=== PATIENT | female | born 1950 | race Caucasian/White ===

== ENCOUNTER 2017-10-23 05:21 | Observation (INO) | payer MEDICARE ==
--- NOTE | 2017-10-23 05:57 | PDOC ---
History of Present Illness <Carolin Hook - Last Filed: 10/23/17 05:57> - General History Source: Patient Exam Limitations: No Limitations - History of Present Illness Initial Comments: 10/23/17 06:06 The patient is a 67 year old female with history of lap band surgery 2011 sent from [facility] for several weeks of epigastric pain, made worse over the past 3 days. The patient describes her epigastric pain as sharp, constant, waxing and waning in intensity, with no modifying factors. She also reports decreased appetite over the past few weeks. She states she has been feeling generally weak and lightheaded with "fainting episodes" over the past few days. She presented to [facility] last night for worsening of her symptoms and was transferred to our facility for further management. The patient denies fever or chills. She endorses recent diarrhea with +flatus, denies constipation or vomiting. Denies chest pain or shortness of breath. Surgeon: Dr. Jose Sanchez <Rupali Uriarte - Last Filed: 10/23/17 07:36> - General Chief Complaint: Pain Stated Complaint: ABDOMINAL PAIN Time Seen by Provider: 10/23/17 05:56 Past History - Suicide/Smoking/Psychosocial Hx Smoking History: Never smoked Have you smoked in the past 12 months: No Information on smoking cessation initiated: No Hx Alcohol Use: No Drug/Substance Use Hx: No <Carolin Hook - Last Filed: 10/23/17 05:57> <Rupali Uriarte - Last Filed: 10/23/17 07:36> - Past Medical History Allergies/Adverse Reactions: Allergies Allergy/AdvReac Type Severity Reaction Status Date / Time nut - unspecified Allergy Verified 10/23/17 05:35 Review of Systems - Review of Systems Able to Perform ROS?: Yes Comments:: 10/23/17 06:10 GENERAL/CONSTITUTIONAL: No fever or chills. +Generalized weakness. HEAD, EYES, EARS, NOSE AND THROAT: No change in vision. No ear pain or discharge. No sore throat. CARDIOVASCULAR: +Lightheadedness, "fainting". No chest pain or shortness of breath. RESPIRATORY: No cough, wheezing, or hemoptysis. GASTROINTESTINAL: +Epigastric pain, Diarrhea. No vomiting or constipation. GENITOURINARY: No dysuria, frequency, or change in urination. MUSCULOSKELETAL: No joint or muscle swelling or pain. No neck or back pain. SKIN: No rash NEUROLOGIC: No headache, vertigo, loss of consciousness, or change in strength/ sensation. ENDOCRINE: No increased thirst. No abnormal weight change. HEMATOLOGIC/LYMPHATIC: No anemia, easy bleeding, or history of blood clots. ALLERGIC/IMMUNOLOGIC: No hives or skin allergy. <Rupali Uriarte - Last Filed: 10/23/17 07:36> *Physical Exam - Vital Signs Last Vital Signs Temp Pulse Resp BP Pulse Ox 98.3 F 81 19 147/90 97 10/23/17 05:31 10/23/17 05:31 10/23/17 05:31 10/23/17 05:31 10/23/17 05:31 <Carolin Hook - Last Filed: 10/23/17 05:57> - Vital Signs Last Vital Signs Temp Pulse Resp BP Pulse Ox 98.3 F 81 19 147/90 97 10/23/17 05:31 10/23/17 05:31 10/23/17 05:31 10/23/17 05:31 10/23/17 05:31 - Physical Exam Comments: 10/23/17 06:12 GENERAL: Awake, alert, and fully oriented, in no acute distress HEAD: No signs of trauma EYES: PERRLA, EOMI, sclera anicteric, conjunctiva clear ENT: Auricles normal inspection, nares patent. Moist mucosa NECK: Normal ROM, supple, no JVD, or masses LUNGS: Breath sounds equal, clear to auscultation bilaterally. No wheezes, and no crackles HEART: Regular rate and rhythm, normal S1 and S2, no murmurs, rubs or gallops ABDOMEN: +Lap band port in lower abdomen intact. +Band of tenderness to palpation across the upper abdomen. Soft, normoactive bowel sounds. No guarding , no rebound. No masses EXTREMITIES: Normal range of motion, no edema. No clubbing or cyanosis. No cords, erythema, or tenderness NEUROLOGICAL: Alert and oriented x 3. Moves all extremities. Face is symmetric. SKIN: Warm, Dry, normal turgor, no rashes or lesions noted. <Rupali Uriarte - Last Filed: 10/23/17 07:36> ED Treatment Course - LABORATORY CBC & Chemistry Diagram: 10/23/17 06:15 10/23/17 06:15 <Rupali Uriarte - Last Filed: 10/23/17 07:36> *DC/Admit/Observation/Transfer <Carolin Hook - Last Filed: 10/23/17 05:57> - Attestations Scribe Attestion: 10/23/17 06:13 Documentation prepared by Rupali Uriarte, acting as director medical surgical for Carolin Hook MD. <Rupali Uriarte - Last Filed: 10/23/17 07:36> - Discharge Dispostion Condition at time of disposition: Fair - Referrals Referrals: Jory Chen MD [Primary Care Provider] - - Patient Instructions - Post Discharge Activity
[2017-10-23 06:34] LABS: BASO % 1.1 % (0-2.0); EOS % 2.2 % (0-4.5); HEMATOCRIT 25.1 % (32.4-45.2); HEMOGLOBIN 7.7 GM/dL (10.7-15.3); LYMPH % 17.4 % (8-40); MCH 20.8 pg (25.7-33.7); MCHC 30.5 g/dl (32.0-36.0); MEAN CELL VOLUME 68.1 fl (80-96); MEAN PLT VOLUME 9.1 fl (7.5-11.1); MONO % 12.4 % (3.8-10.2); NEUT % 66.9 % (42.8-82.8); PLATELET COUNT 286 K/MM3 (134-434); RBC 3.68 M/mm3 (3.60-5.2); RDW 17.5 % (11.6-15.6); WHITE BLOOD COUNT 4.2 K/mm3 (4.0-10.0)
[2017-10-23 07:04] LABS: ALBUMIN 3.4 g/dl (3.4-5.0); ANION GAP 10 (8-16); BILIRUBIN,TOTAL 0.4 mg/dL (0.2-1.0); BLOOD UREA NITROGEN 7 mg/dL (7-18); CALCIUM 8.6 mg/dL (8.5-10.1); CHLORIDE 100 mmol/L (98-107); CO2 26 mmol/L (21-32); CREATININE 0.5 mg/dL (0.55-1.02); GLUCOSE,RANDOM 90 mg/dL (74-106); POTASSIUM 3.1 mmol/L (3.5-5.1); SGOT/AST 13 U/L (15-37); SGPT/ALT 10 U/L (12-78); SODIUM 136 mmol/L (136-145); TOT PROT 6.6 g/dl (6.4-8.2)
[2017-10-23 07:06] LABS: ALK PHOS 134 U/L (45-117)
[2017-10-23] MEDS ORDERED: morphine CARPU-JECT 4 MG/1 ML DISP.SYRIN IVPUSH ONE (08:57)
--- NOTE | 2017-10-23 09:01 | PDOC ---
*Physical Exam - Vital Signs Last Vital Signs Temp Pulse Resp BP Pulse Ox 98.3 F 81 19 147/90 97 10/23/17 05:31 10/23/17 05:31 10/23/17 05:31 10/23/17 05:31 10/23/17 05:31 ED Treatment Course - LABORATORY CBC & Chemistry Diagram: 10/23/17 06:15 10/23/17 06:15 - ADDITIONAL ORDERS Additional order review: Laboratory Results 10/23/17 10/23/17 06:15 06:15 Sodium 136 Potassium 3.1 L Chloride 100 Carbon Dioxide 26 Anion Gap 10 BUN 7 Creatinine 0.5 L Creat Clearance w eGFR > 60 Random Glucose 90 Lactic Acid 0.7 Calcium 8.6 Total Bilirubin 0.4 AST 13 L ALT 10 L Alkaline Phosphatase 134 H Total Protein 6.6 Albumin 3.4 10/23/17 06:15 RBC 3.68 MCV 68.1 L MCHC 30.5 L RDW 17.5 H MPV 9.1 Neutrophils % 66.9 Lymphocytes % 17.4 Monocytes % 12.4 H Eosinophils % 2.2 Basophils % 1.1 - RADIOLOGY Radiology Studies Ordered: Category Date Time Status ABDOMEN & PELVIS CT W/O CONTR [CT] Stat CT Scan 10/23/17 07:39 Ordered *DC/Admit/Observation/Transfer Diagnosis at time of Disposition: Abdominal pain Qualifiers: Abdominal location: unspecified location Qualified Code(s): R10.9 - Unspecified abdominal pain - Discharge Dispostion Disposition: HOME Condition at time of disposition: Stable Decision to Admit order: Yes - Referrals Referrals: Jory Chen MD [Primary Care Provider] - - Patient Instructions - Post Discharge Activity
[2017-10-23] MEDS ORDERED: morphine SULFATE 4 MG/ML VIAL ONE (09:03)
[2017-10-23] MEDS ORDERED: SUCRALFATE 1 GM/10 ML UNIT DOSE CUPS PO ONE (13:01)
--- NOTE | 2017-10-23 13:28 | CONSULT ---
Consult Consult Specialty:: Bariatric and General Surgery Reason for Consultation:: Abdominal pain s/p gastric bypass surgery - History of Present Illness Chief Complaint: Severe upper abdominal pain of several weeks duration, no nausea/vomiting, intermittent diarrhea/constipation. History of Present Illness: Patient presented to outside ED last night at the suggestion of her PCP's office c/o severe intermittent upper abdominal pain of several weeks duration worsening over past three days. Patient is s/p gastric bypass in 2005 in [place] and s/p Band over Bypass in 2010, also gemologist diagnostic laparoscopy with repair internal hernia and cholecystecomy all by Dr. Sanchez. According to reports, patient was found to be stable, afebrile with a benign abdomen at outside institution. Patient was transferred to [facility] (where her Bariatric surgeon has privileges) for further evaluation. In this ED patient s/o mild upper abdominal pain, denied nausea/vomiting, intermittent diarrhea/constipation, no fever/ chills. NO SOB, no other symptoms. Vitals stable, labs WNL except for low K, abdomen exam benign. A repeat CT scan was performed with oral contract because the CT scan from the outside institution could not be uploaded. On my exam, Patient states she no longer has abdominal pain since receiving pain meds, denies other GI symptoms except for mild acid reflux. Abdominal exam completely benign. Vitals are stable labs as per above. I personally reviewed the repeat CT scan with Attending Radiologist. No acute abdominal pathology. No obstruction, no evidence internal hernia. No evidence Band slippage. Some suggestion of thickening of the gastro-jejunostomy region which may represent a chronic anastomotic ulcer. - History Source History Provided By: Patient Limitations to Obtaining History: No Limitations - Past Medical History Heme/Onc: Yes: Anemia (most likely due to severe iron deficiency), Other (Iron deficiency as per patient) - Past Surgical History Past Surgical History: Yes: Breast Biopsy (benign disease as per patient), Bypass (Gastric bypass in 2005 in [place], [place]), Cholecystectomy Additional Surgical History: S/p Band over Bypass in 2010 , S/P laparoscopic repair internal hernia - Alcohol/Substance Use Hx Alcohol Use: No - Smoking History Smoking history: Never smoked Have you smoked in the past 12 months: No Home Medications - Allergies Allergies/Adverse Reactions: Allergies Allergy/AdvReac Type Severity Reaction Status Date / Time nut - unspecified Allergy Verified 10/23/17 05:35 Family Disease History - Family Disease History Family History: Unremarkable Review of Systems - Review of Systems Constitutional: reports: Weakness. denies: Chills, Fever Eyes: denies: Blurred Vision, Double Vision, Recent Change in Vision HENT: denies: Difficult Swallowing, Throat Pain Neck: denies: Decreased ROM, Lumps Cardiovascular: denies: Chest Pain, Shortness of Breath Respiratory: denies: Cough, Wheezing Gastrointestinal: reports: Abdominal Pain (Severe upper abdominal pain in "band like" area across epigastrium.), Constipation (intermittent, last BM 2 days ago) , Diarrhea (intermittent post prandial). denies: Other (Denies obstipation) Genitourinary: denies: Burning, Dysuria, Flank Pain Musculoskeletal: reports: Muscle Weakness. denies: Joint Swelling Integumentary: denies: Erythema, Rash Neurological: denies: Change in LOC, Change in Speech Endocrine: denies: Excessive Sweating, Increased Thirst Physical Exam Vital Signs: Vital Signs Temperature 98.5 F 10/23/17 07:20 Pulse Rate 69 10/23/17 07:20 Respiratory Rate 18 10/23/17 07:20 Blood Pressure 137/73 10/23/17 07:20 O2 Sat by Pulse Oximetry (%) 98 10/23/17 07:20 Constitutional: Yes: No Distress, Calm, Thin Eyes: Yes: Conjunctiva Clear, EOM Intact HENT: Yes: Atraumatic, Normocephalic Neck: Yes: Supple, Trachea Midline Cardiovascular: Yes: Regular Rate and Rhythm. No: Tachycardia Respiratory: Yes: Regular, CTA Bilaterally Gastrointestinal: Yes: Normal Bowel Sounds, Soft. No: Hernia, Tenderness ...Rectal Exam: Yes: Deferred Renal/: No: Anuria, Bladder Distention Musculoskeletal: No: Joint Swelling, Muscle Pain Extremities: No: Calf Tenderness, Cyanosis Edema: No Integumentary: No: Erythema, Jaundice Neurological: Yes: Alert, Oriented Psychiatric: Yes: Alert, Oriented Labs: CBC, BMP 10/23/17 06:15 10/23/17 06:15 Imaging - Results Chest X-ray: Report Reviewed (No free air. NO infiltrates.) Cat Scan: Report Reviewed, Image Reviewed (I personally reviewed the repeat CT scan with Attending Radiologist. I personally reviewed the CT scan abdomen/ pelvis with Attending Radiologist. No acute abdominal pathology. No obstruction , no evidence internal hernia. No evidence Band slippage. Some suggestion of thickening of the gastro-jejunostomy region which may represent an anastomotic ulcer.) Problem List - Problems (1) Abdominal pain Assessment/Plan: Patient transferred to [facility] from outside institution c/o severe intermittent upper abdominal pain of several weeks duration worsening over past 3 days. Patient is s/p gastric bypass in 2005 in [place] and s/p [place] [address] Sanchez. Patient is also s/p diagnostic laparoscopy with repair internal hernia and cholecystectomy several years ago. In this ED, vitals remain stable, labs WNL except for low K, chronic anemia. Patient states she no longer has abdominal pain since receiving pain meds, denies other GI symptoms except for mild acid reflux. Abdominal exam completely benign. I personally reviewed the repeat CT scan with Attending Radiologist. No acute abdominal pathology. No obstruction, no evidence internal hernia. No evidence Band slippage. Some suggestion of thickening of the gastro-jejunostomy region which may represent a chronic anastomotic ulcer. NO evidence acute intra-abdominal pathology. No need for surgical intervention. Admit to Hospitalist service for observation, IV hydration. Suggest IV PPI daily, Oral Carafate - 1 gm PO QID. Repeat labs with iron panel, nutritional labs with B vitamins, Vit D. Will likely need an EGD outpatient to assess for anastomotic /gastric pouch ulcer. Code(s): R10.9 - UNSPECIFIED ABDOMINAL PAIN Qualifiers: Abdominal location: epigastric Qualified Code(s): R10.13 - Epigastric pain (2) Postsurgical intestinal bypass or anastomosis status Assessment/Plan: S/P gastric bypass in 2005, s/p laparoscopic internal hernia repair with cholecystectomy No clinical nor radiologic evidence of recurrent internal hernia, no evidence intestinal obstruction. Code(s): Z98.0 - INTESTINAL BYPASS AND ANASTOMOSIS STATUS (3) Status post gastric banding Assessment/Plan: S/P gastric band over gastric bypass in 2010. No clinical nor radiologic evidence of band slippage, no evidence erosion. Bowel wall thickening in area of gastro-jejunostomy anastomosis may represent possible gastric pouch or anastomotic ulcer as evidenced on CT scan. Code(s): Z98.84 - BARIATRIC SURGERY STATUS (4) Anemia Assessment/Plan: Patient with anemia appears to be chronic probably related to iron deficincy s/ p gastric bypass. Would repeat labs today with iron panel and full nutritional labs. Code(s): D64.9 - ANEMIA, UNSPECIFIED Assessment/Plan See my full Assessment Plan in Problem list section. Spoke with Dr. Sanchez regarding this patient. Agrees with plan. Dr. Sanchez to see patient tomorrow for disposition.
--- NOTE | 2017-10-23 13:33 | HP ---
CHIEF COMPLAINT: Abdominal pain PCP/Surgeon: Dr. Sanchez HISTORY OF PRESENT ILLNESS: 67 year-old female with a PMH significant for gastric bypass (2005), band-over bypass (2010), and depression. Has been experiencing abdominal pain x 3 weeks. At first thought it was due to constipation but was advised by PCP to take OTC meds and constipation resolved. Two days ago again called PCP for sharp, constant abdominal pain and decreased appetite and was told to go to nearest ED. Patient went to [facility] and was transferred to [facility] today to see Dr. Sanchez. Patient denies fever, sweats, chills. She has had some recent diarrhea, no nausea or vomiting. She reports a recent 10-pound weight loss. ER course was notable for: (1) Hgb 7.7, MCV 68.1 (2) K 3.1 Recent Travel: No PAST MEDICAL HISTORY: Depression PAST SURGICAL HISTORY: Gastric bypass (2005) Band-over bypass (2010) Internal hernia repair Cholecystectomy Social History: Smoking: never Alcohol: sober x 7 years Drugs: no Family History: Allergies nut - unspecified Allergy (Verified 10/23/17 05:35) HOME MEDICATIONS: Home Medications Medication Instructions Recorded Cymbalta PO DAILY 10/23/17 Midodrine HCl TID 10/23/17 Trazodone HCl HS 10/23/17 REVIEW OF SYSTEMS CONSTITUTIONAL: Absent: fever, chills, diaphoresis, generalized weakness, malaise, loss of appetite, weight change HEENT: Absent: rhinorrhea, nasal congestion, throat pain, throat swelling, difficulty swallowing, mouth swelling, ear pain, eye pain, visual changes CARDIOVASCULAR: Absent: chest pain, syncope, palpitations, irregular heart rate, lightheadedness , peripheral edema RESPIRATORY: Absent: cough, shortness of breath, dyspnea with exertion, orthopnea, wheezing, stridor, hemoptysis GASTROINTESTINALd: +abdominal pain that radiates into chest Absent: fabdominal distension, nausea, vomiting, diarrhea, constipation, melena , hematochezia GENITOURINARY: Absent: dysuria, frequency, urgency, hesitancy, hematuria, flank pain, genital pain MUSCULOSKELETAL: Absent: myalgia, arthralgia, joint swelling, back pain, neck pain SKIN: Absent: rash, itching, pallor HEMATOLOGIC/IMMUNOLOGIC: Absent: easy bleeding, easy bruising, lymphadenopathy, frequent infections ENDOCRINE: Absent: unexplained weight gain, unexplained weight loss, heat intolerance, cold intolerance NEUROLOGIC: Absent: headache, focal weakness or paresthesias, dizziness, unsteady gait, seizure, mental status changes, bladder or bowel incontinence PSYCHIATRIC: Absent: anxiety, depression, suicidal or homicidal ideation, hallucinations. PHYSICAL EXAMINATION Vital Signs - 24 hr 10/23/17 10/23/17 05:31 07:20 Temperature 98.3 F 98.5 F Pulse Rate 81 Pulse Rate [ 69 Right] Respiratory 19 18 Rate Blood Pressure 147/90 Blood Pressure 137/73 [Right Arm] O2 Sat by Pulse 97 98 Oximetry (%) GENERAL: Awake, alert, and fully oriented, in no acute distress. HEAD: Normal with no signs of trauma. EYES: Pupils equal, round and reactive to light, extraocular movements intact, sclera anicteric, conjunctiva clear. No lid lag. EARS, NOSE, THROAT: Ears normal, nares patent, oropharynx clear without exudates. Moist mucous membranes. NECK: Normal range of motion, supple without lymphadenopathy, JVD, or masses. LUNGS: Breath sounds equal, clear to auscultation bilaterally. No wheezes, and no crackles. No accessory muscle use. HEART: Regular rate and rhythm, normal S1 and S2 ABDOMEN: Soft, nontender, not distended, normoactive bowel sounds, no guarding, no rebound MUSCULOSKELETAL: Normal range of motion at all joints. No bony deformities or tenderness. No CVA tenderness. UPPER EXTREMITIES: 2+ pulses, warm, well-perfused. No cyanosis. No clubbing. No peripheral edema. LOWER EXTREMITIES: 2+ pulses, warm, well-perfused. No calf tenderness. No peripheral edema. NEUROLOGICAL: Cranial nerves II-XII intact. Normal speech. Laboratory Results - last 24 hr 10/23/17 10/23/17 10/23/17 06:15 06:15 06:15 WBC 4.2 RBC 3.68 Hgb 7.7 L Hct 25.1 L MCV 68.1 L MCH 20.8 L MCHC 30.5 L RDW 17.5 H Plt Count 286 MPV 9.1 Absolute Neuts (auto) 2.8 Neutrophils % 66.9 Lymphocytes % 17.4 Monocytes % 12.4 H Eosinophils % 2.2 Basophils % 1.1 Nucleated RBC % 0 Sodium 136 Potassium 3.1 L Chloride 100 Carbon Dioxide 26 Anion Gap 10 BUN 7 Creatinine 0.5 L Creat Clearance w eGFR > 60 Random Glucose 90 Lactic Acid 0.7 Calcium 8.6 Total Bilirubin 0.4 AST 13 L ALT 10 L Alkaline Phosphatase 134 H Total Protein 6.6 Albumin 3.4 Imaging 10/23/17 CXR: unremarkable 10/23/17 CTAP: (1) gastrojejeunal anastomosis wall thickening, possible marginal ulcer; (2) gastric band PHI angle 40 degrees; (3) moderate extrahepatic bile duct dilitation presumably physiologic change post-cholecystectomy ASSESSMENT/PLAN 67 year-old female with a PMH significant for gastric bypass (2005), band-over bypass (2010), and depression. Placed on observation for abdominal pain. Severe anemia. Abdominal pain --possible ulcer --protonix IVP BID --carafate oral suspension QID Microcytic anemia --anemia workup pending Hypokalemia --repleted FEN Fluids: PO intake adequate Electrolytes: replete as indicated Nutrition: clears DVT prophylaxis: lovenox, oob, ambulation Dispo: continues to require observation Visit type - Emergency Visit Emergency Visit: Yes ED Registration Date: 10/23/17 Care time: The patient presented to the Emergency Department on the above date and was hospitalized for further evaluation of their emergent condition. - New Patient This patient is new to me today: Yes Date on this admission: 10/23/17 - Critical Care Critical Care patient: No Hospitalist Screening - Colonoscopy Questionnaire Colonoscopy Questionnaire: Colonoscopy Questionnaire - Patient: 50 - 75 years old and never had a screening colonoscopy: Unknown History of colon or rectal polyps, or CA: Unknown History of IBD, Crohn's disease or UC: Unknown History of abdominal radiation therapy as a child: Unknown - Relative: 1 with colon or rectal CA, or polyps at age 60 or younger: Unknown Colon or rectal CA diagnosed at age 45 or younger: Unknown Multiple relatives with colon or rectal CA: Unknown - Outcome: Screening Result: Negative Screen
[2017-10-23] MEDS ORDERED: SUCRALFATE 1 GM TABLET (FP) ONE (14:15)
[2017-10-23] MEDS ORDERED: PANTOPRAZOLE SODIUM 40 MG VIAL ONE (14:15)
[2017-10-23] MEDS: PANTOPRAZOLE SODIUM 40 MG VIAL IVPUSH ONE ×2 (14:28→14:29)
[2017-10-23] MEDS: POTASSIUM CHLORIDE TABS 20 MEQ TABLET.ER (FP) PO SCH (21:40)
[2017-10-23] MEDS: ACETAMINOPHEN 325 MG TABLET (FP) PO PRN (21:40)
[2017-10-23] MEDS: SUCRALFATE 1 GM/10 ML UNIT DOSE CUPS PO SCH (21:40)
[2017-10-23] MEDS ORDERED: SUCRALFATE 1 GM/10 ML UNIT DOSE CUPS PO SCH (22:00)
[2017-10-24] MEDS: POTASSIUM CHLORIDE TABS 20 MEQ TABLET.ER (FP) PO SCH (03:10)
[2017-10-24 07:34] LABS: BASO % 1.5 % (0-2.0); EOS % 2.2 % (0-4.5); HEMATOCRIT 26.2 % (32.4-45.2); HEMOGLOBIN 8.1 GM/dL (10.7-15.3); LYMPH % 21.2 % (8-40); MCH 20.8 pg (25.7-33.7); MCHC 30.7 g/dl (32.0-36.0); MEAN CELL VOLUME 67.7 fl (80-96); MEAN PLT VOLUME 9.4 fl (7.5-11.1); MONO % 11.3 % (3.8-10.2); NEUT % 63.8 % (42.8-82.8); PLATELET COUNT 298 K/MM3 (134-434); RBC 3.88 M/mm3 (3.60-5.2); RDW 17.7 % (11.6-15.6); WHITE BLOOD COUNT 3.7 K/mm3 (4.0-10.0)
[2017-10-24 07:49] LABS: ALBUMIN 3.3 g/dl (3.4-5.0); ALK PHOS 191 U/L (45-117); ANION GAP 5 (8-16); BILIRUBIN,TOTAL 0.4 mg/dL (0.2-1.0); BLOOD UREA NITROGEN 4 mg/dL (7-18); CHLORIDE 104 mmol/L (98-107); CO2 27 mmol/L (21-32); CREATININE 0.5 mg/dL (0.55-1.02); GLUCOSE,RANDOM 90 mg/dL (74-106); LDH 110 U/L (84-246); LIPASE 146 U/L (73-393); MAGNESIUM 2.1 mg/dL (1.8-2.4); POTASSIUM 3.5 mmol/L (3.5-5.1); SGOT/AST 20 U/L (15-37); SGPT/ALT 18 U/L (12-78); SODIUM 136 mmol/L (136-145); TOT PROT 6.9 g/dl (6.4-8.2)
[2017-10-24] MEDS: ENOXAPARIN NA (PORCINE) 40 MG/0.4 ML DISP.SYRIN SQ SCH (09:36)
[2017-10-24] MEDS: PANTOPRAZOLE SODIUM 40 MG VIAL IVPUSH SCH ×2 (09:36→21:38)
[2017-10-24] MEDS: SUCRALFATE 1 GM/10 ML UNIT DOSE CUPS PO SCH ×4 (09:36→21:38)
--- NOTE | 2017-10-24 10:35 | PN ---
Physical Exam: SUBJECTIVE: Patient seen and examined at bedside. Complaining of lower abdominal pain, across the entire lower abdomen. Had BM today. Feels hungry. OBJECTIVE: Vital Signs Period Temp Pulse Resp BP Sys/Dewey Pulse Ox Last 24 Hr 98 F-98.6 F 59-76 17-20 115-155/64-76 95-99 GENERAL: The patient is awake, alert, and fully oriented, in no acute distress. LUNGS: Breath sounds CTA. HEART: Regular rate and rhythm, S1, S2 ABDOMEN: Soft, nontender, nondistended EXTREMITIES: 2+ pulses, warm, well-perfused, no edema. NEUROLOGICAL: Cranial nerves II through XII grossly intact. Normal speech, gait not observed. Laboratory Results - last 24 hr 10/24/17 10/24/17 10/24/17 06:00 06:00 06:00 WBC 3.7 L RBC 3.88 Hgb 8.1 L Hct 26.2 L MCV 67.7 L MCH 20.8 L MCHC 30.7 L RDW 17.7 H Plt Count 298 MPV 9.4 Absolute Neuts (auto) 2.4 Neutrophils % 63.8 Lymphocytes % 21.2 D Monocytes % 11.3 H Eosinophils % 2.2 Basophils % 1.5 Nucleated RBC % 0 Retic Count 2.18 H Sodium 136 Potassium 3.5 Chloride 104 Carbon Dioxide 27 Anion Gap 5 L BUN 4 L Creatinine 0.5 L Creat Clearance w eGFR > 60 Random Glucose 90 Calcium 9.0 Magnesium 2.1 Ferritin Total Bilirubin 0.4 AST 20 ALT 18 Alkaline Phosphatase 191 H LD Total 110 Total Protein 6.9 Albumin 3.3 L Lipase 146 10/24/17 06:00 WBC RBC Hgb Hct MCV MCH MCHC RDW Plt Count MPV Absolute Neuts (auto) Neutrophils % Lymphocytes % Monocytes % Eosinophils % Basophils % Nucleated RBC % Retic Count Sodium Potassium Chloride Carbon Dioxide Anion Gap BUN Creatinine Creat Clearance w eGFR Random Glucose Calcium Magnesium Ferritin 4.7 L Total Bilirubin AST ALT Alkaline Phosphatase LD Total Total Protein Albumin Lipase Active Medications Generic Name Dose Route Start Last Admin Trade Name Freq PRN Reason Stop Dose Admin Acetaminophen 650 mg 10/23/17 20:58 10/23/17 21:40 Tylenol - PO 650 mg Q6H PRN Administration PAIN LEVEL 1 - 3 Enoxaparin Sodium 40 mg 10/24/17 10:00 10/24/17 09:36 Lovenox - SQ 40 mg DAILY CONY Administration Pantoprazole Sodium 40 mg 10/24/17 10:00 10/24/17 09:36 Protonix Iv IVPUSH 40 mg BID CONY Administration Sucralfate 1 gm 10/23/17 22:00 10/24/17 09:36 Carafate Oral Suspension - PO 1 gm QID CONY Administration Imaging 10/23/17 CXR: unremarkable 10/23/17 CTAP: (1) gastrojejeunal anastomosis wall thickening, possible marginal ulcer; (2) gastric band PHI angle 40 degrees; (3) moderate extrahepatic bile duct dilitation presumably physiologic change post-cholecystectomy ASSESSMENT/PLAN 67 year-old female with a PMH significant for gastric bypass (2005), band-over bypass (2010), and depression. Placed on observation for abdominal pain. Severe anemia. Abdominal pain --possible ulcer --protonix IVP BID --carafate oral suspension QID --advance diet --pending consult by Dr. Sanchez, surgeon Microcytic anemia --anemia workup pending Hypokalemia --resolved FEN Fluids: PO intake adequate Electrolytes: replete as indicated Nutrition: clears DVT prophylaxis: lovenox, oob, ambulation Dispo: continues to require observation Visit type - Emergency Visit Emergency Visit: Yes ED Registration Date: 10/23/17 Care time: The patient presented to the Emergency Department on the above date and was hospitalized for further evaluation of their emergent condition. - New Patient This patient is new to me today: No - Critical Care Critical Care patient: No
[2017-10-24] MEDS ORDERED: PANTOPRAZOLE SODIUM 40 MG VIAL IVPUSH ONE (13:36)
[2017-10-24] MEDS: ACETAMINOPHEN 325 MG TABLET (FP) PO PRN (21:39)
[2017-10-25 06:06] LABS: SERUM IRON SATURATION 3 % (15-55); TOTAL IRON BINDING CAPACITY 357 ug/dL (250-450); UIBC 345 ug/dL (118-369)
[2017-10-25 07:46] LABS: ALBUMIN 3.2 g/dl (3.4-5.0); ANION GAP 7 (8-16); BLOOD UREA NITROGEN 8 mg/dL (7-18); CALCIUM 8.6 mg/dL (8.5-10.1); CHLORIDE 103 mmol/L (98-107); CO2 30 mmol/L (21-32); GLUCOSE,RANDOM 87 mg/dL (74-106); POTASSIUM 3.5 mmol/L (3.5-5.1); SODIUM 140 mmol/L (136-145)
[2017-10-25 07:50] LABS: ALK PHOS 168 U/L (45-117); BILIRUBIN,TOTAL 0.3 mg/dL (0.2-1.0); CREATININE 0.5 mg/dL (0.55-1.02); SGOT/AST 11 U/L (15-37); SGPT/ALT 14 U/L (12-78); TOT PROT 6.5 g/dl (6.4-8.2)
[2017-10-25 07:53] LABS: HEMATOCRIT 25.9 % (32.4-45.2); MCH 20.7 pg (25.7-33.7); MCHC 30.8 g/dl (32.0-36.0); MEAN CELL VOLUME 67.3 fl (80-96); MEAN PLT VOLUME 9.5 fl (7.5-11.1); PLATELET COUNT 280 K/MM3 (134-434); RBC 3.84 M/mm3 (3.60-5.2); RDW 17.5 % (11.6-15.6); WHITE BLOOD COUNT 3.6 K/mm3 (4.0-10.0)
[2017-10-25] MEDS: SUCRALFATE 1 GM/10 ML UNIT DOSE CUPS PO SCH ×2 (09:16→12:57)
[2017-10-25] MEDS: ENOXAPARIN NA (PORCINE) 40 MG/0.4 ML DISP.SYRIN SQ SCH (09:17)
[2017-10-25] MEDS: PANTOPRAZOLE SODIUM 40 MG VIAL IVPUSH SCH (09:17)
[2017-10-25 15:30] VITALS: BP 126/69; PULSE 71; TEMP 97.9
--- NOTE | 2017-10-25 16:01 | PN ---
Progress Note (short form) - Note Progress Note: Pt seen and examined Pt states pain that brought her to the hospital (Eliezer Brothers) on 10/22 now resolved Pt tolerating regular diet (but avoids meats chronically) P/E- Abd- non-distended soft, non-tender on palpation no masses palpated WBC-3.6 H/H-01/08.9( no change) Rec- D/C pt home Diet reviewed with pt- will look to continue with protein, vegetables F/U with PMD in 4-7 days F/U with Dr Sanchez in 2 weeks
[2017-10-25 16:03] VITALS: BMI 21.6
--- NOTE | 2017-10-25 16:04 | DS ---
Physical Exam: SUBJECTIVE: Patient seen and examined OBJECTIVE: Vital Signs Period Temp Pulse Resp BP Sys/Dewey Pulse Ox Last 24 Hr 97.8 F-98.9 F 68-76 18-20 114-140/69-81 95-96 PHYSICAL EXAM GENERAL: The patient is awake, alert, and fully oriented, in no acute distress. LUNGS: Breath sounds CTA. HEART: Regular rate and rhythm, S1, S2 ABDOMEN: Soft, nontender, nondistended EXTREMITIES: 2+ pulses, warm, well-perfused, no edema. NEUROLOGICAL: Cranial nerves II through XII grossly intact. Normal speech, gait not observed. LABS Laboratory Results - last 24 hr 10/24/17 10/25/17 10/25/17 06:00 06:30 06:30 WBC 3.6 L RBC 3.84 Hgb 8.0 L Hct 25.9 L MCV 67.3 L MCH 20.7 L MCHC 30.8 L RDW 17.5 H Plt Count 280 MPV 9.5 Sodium 140 Potassium 3.5 Chloride 103 Carbon Dioxide 30 Anion Gap 7 L BUN 8 Creatinine 0.5 L Creat Clearance w eGFR > 60 Random Glucose 87 Calcium 8.6 Iron 12 L TIBC 357 Iron Saturation 3 L Total Bilirubin 0.3 D AST 11 L ALT 14 Alkaline Phosphatase 168 H Total Protein 6.5 Albumin 3.2 L HOSPITAL COURSE: Date of Admission:10/23/17 Date of Discharge: 10/25/17 Imaging 10/23/17 CXR: unremarkable 10/23/17 CTAP: (1) gastrojejeunal anastomosis wall thickening, possible marginal ulcer; (2) gastric band PHI angle 40 degrees; (3) moderate extrahepatic bile duct dilitation presumably physiologic change post-cholecystectomy 67 year-old female with a PMH significant for gastric bypass (2005), band-over bypass (2010), and depression. Placed on observation for abdominal pain. Severe anemia. Abdominal pain, resolved --possible ulcer on CT imaging --treated initially with IV protonix, and carafate oral suspension with symptoms resolution --seen and evaluated today by Dr. Sanchez, continue carafate and switch to pepcid BID on discharge --tolerating regular diet --f/u with Dr. Sanchez in 2 weeks Microcytic anemia, chronic Hypokalemia --resolved Minutes to complete discharge: 35 Discharge Summary Reason For Visit: ABDOMINAL PAIN Current Active Problems Abdominal pain (Acute) Abdominal pain (Acute) Anemia (Acute) Postsurgical intestinal bypass or anastomosis status (Acute) Status post gastric banding (Acute) Condition: Stable - Instructions Diet, Activity, Other Instructions: Three prescriptions have been sent to your pharmacy. One is for Pepcid, one is for carafate, and one is for percocet. Take these medications as prescribed. You were seen earlier today by Dr. Sanhcez and he discussed your diet with you. You should follow up with him in 2 weeks. Referrals: Jose Sanchez MD [Staff Physician] - 2 Weeks Disposition: HOME - Home Medications Comprehensive Discharge Medication List: Ambulatory Orders Cymbalta PO DAILY 10/23/17 Midodrine HCl TID 10/23/17 Trazodone HCl HS 10/23/17 Famotidine [Pepcid] 20 mg PO BID #60 tablet 10/25/17 Oxycodone HCl/Acetaminophen [Percocet 5-325 mg Tablet] 1 tab PO Q6H #20 tablet MDD 4 10/25/17 Sucralfate Oral Suspension [Carafate Oral Suspension -] 1 gm PO BID #240 ml 04/03 This patient is new to me today: No Emergency Visit: Yes ED Registration Date: 10/23/17 Care time: The patient presented to the Emergency Department on the above date and was hospitalized for further evaluation of their emergent condition. Critical Care patient: No - Discharge Referral Referred to [facility] No
[2017-10-26 06:06] LABS: TRANSFERRIN 296 mg/dL (200-370)
== END 2017-10-25 19:09 | disposition home or self-care (01) ==
LOC: JER 05:21 → JERBED 13:28 → J7W 15:48
PROVIDERS: ADMIT Hospitalist; ATTEND Nurse Practitioner Acute Care
PROC: 3E033NZ Introduction of Analgesics, Hypnotics, Sedatives into Peripheral Vein, Percutaneous Approach (ICD-10-PCS; principal; 2017-10-23)
PROC: 3E033GC Introduction of Other Therapeutic Substance into Peripheral Vein, Percutaneous Approach (ICD-10-PCS; 2017-10-23)
PROC: 3E013GC Introduction of Other Therapeutic Substance into Subcutaneous Tissue, Percutaneous Approach (ICD-10-PCS; 2017-10-23)
DX: R10.9 Unspecified abdominal pain (principal); D50.9 Iron deficiency anemia, unspecified; E87.6 Hypokalemia; Z98.84 Bariatric surgery status
CPT/HCPCS: 36415; 71045-TC-FY; 74176-TC; 80053; 82728; 83010; 83540; 83550; 83605; 83615; 83690; 83735; 84466; 85025; 85027; 85044; 96372; 96374; 96375; 96376; 99283-25; G0378